=== PATIENT | male | born 1950 | race Caucasian/White ===

== ENCOUNTER → 2022-04-06 08:38 | Outpatient (CLI) | payer MEDICARE, SELFPAY ==
[2022-04-06 12:45] LABS: COVID19 -Nasal RAPID Negative (Negative)
== END ==
PROVIDERS: Visit Provider Family Medicine Sleep Medicine
DX: Z20.822 Contact with and (suspected) exposure to COVID-19 (principal)
CPT/HCPCS: 87635

== ENCOUNTER → 2022-04-06 08:47 | Outpatient (CLI) | payer MEDICARE, SELFPAY ==
--- NOTE | 2022-04-07 19:45 | DI.NM.S_ITS ---
DATE OF SERVICE: 04/06/2022 PROCEDURE PERFORMED: Pharmacological perfusion study. INDICATION: Underlying atrial fibrillation, as well as diabetes mellitus and hypertension. RADIOPHARMACEUTICAL: 25.8 millicurie technetium-99m Myoview IV was injected at stress and 24.9 millicurie technetium-99m Myoview IV was injected at rest. CARDIAC STRESS: The patient underwent IV Lexiscan perfusion study under the supervision of an attending staff, as per standard protocol. The patient remained hemodynamically stable. Baseline blood pressure 132/80. Baseline rhythm AFib with controlled ventricular rate. There were some nonspecific ST changes. During stress, there were no inducible ischemic changes. Rare PVCs. No anginal symptoms. RAW DATA: There is increased subdiaphragmatic activity affecting the inferior border of the heart. GATED STUDY: Stress LV ejection fraction 64 percent without any obvious wall motion abnormalities. Resting end-diastolic volume 167 mL, suggestive of dilated LV. However, the patient's weight is 308 pounds. TID ratio 0.98, which is within normal limits. Lung/heart ratio 0.27, which is within normal limits. MYOCARDIAL PERFUSION STUDY: Please note that there are no stress prone images. Stress supine and resting supine images were compared to each other. There appears to be predominantly fixed, moderate size, moderate to severely decreased perfusion of inferior wall extending into the distal inferolateral wall, as well as inferoapex. There is a moderately decreased perfusion of basal inferolateral wall, as well. No obvious reversible ischemia. CONCLUSION: There is a predominantly fixed, moderate to large size, severely decreased perfusion of inferior wall, distal inferolateral wall, inferoapex, as well as basal inferolateral wall. No reversible ischemia. There are no prone images. Hence, cannot distinguish tissue attenuation artifact versus old myocardial infarction, however during the raw study, significant tissue attenuation artifact is seen near the inferior border. Hot spot seen near the inferior border affecting the inferior border of the heart. On gated study, no significant wall motion abnormalities involving inferior wall and inferolateral wall. Hence, likely we are dealing with tissue attenuation artifact, like diaphragmatic tissue attenuation artifact. The patient's weight is 308 pounds. However, cannot rule out the possibility of inferior wall, distal inferolateral, inferoapex and basal inferolateral infarction for sure. In absence of reversible ischemia, preserved left ventricular function, overall low-risk myocardial perfusion scan. Correlate clinically. Hipolito Marrero - LANDRY/guanakito/tanner doc#: [id number]/job#: [id number] dd: 04/07/2022 16:32:00 dt: 04/07/2022 19:31:00 DICTATING MD/COPIES TO: Nicola Barakat MD COPIES MNE: LUIS ALBERTO;
== END ==
PROVIDERS: PCP Internal Medicine; Referring Provider Internal Medicine; Visit Provider Internal Medicine
DX: I48.91 Unspecified atrial fibrillation (principal); E11.9 Type 2 diabetes mellitus without complications; I10 Essential (primary) hypertension; Z20.822 Contact with and (suspected) exposure to COVID-19
CPT/HCPCS: 78452; 87635; 93017; C9803; A9502; J2785

== ENCOUNTER → 2022-04-14 08:22 | Outpatient (CLI) | payer MEDICARE, SELFPAY ==
--- NOTE | 2022-04-14 08:25 | DI.ECHO.S_ITS ---
[facility]---------+ [facility] +---------+ : : [address] : : : : [id number] : : : : Phone: [phone]---------+ Echocardiogram Report + + :Name: KATHERINE VIEYRA Study Date: 04/14/2022 Height: 75 in : :[facility] ReadingLocation: Weight: 350 lb : : Gender: Male BSA: 2.8 m2 : :: 1950 Age: 71 yrs BP: 150/80 mmHg: :Reason For Study: ATRIAL FIBRILLATION : :Ordering Physician: ARBEN, : :DAX Performed By: Rochelle Kelley : :Referring: DAX THEODORE : + + Interpretation Summary The left ventricle is borderline dilated. Left ventricular systolic function appears normal without focal wall motion abnormalities. The ejection fraction is estimated to be 55-60%. The right ventricle is normal in size and function. The right ventricular systolic pressure is estimated to be at least 27 mmHg based on an estimated right atrial pressure of 3 mm Hg. Right atrial size is normal. The left atrium is moderately dilated. There is mild to moderate mitral regurgitation. There is no other significant valvular heart disease. The ascending aorta is mildly enlarged. Procedure: A two-dimensional transthoracic echocardiogram with color flow and Doppler was performed. The study quality was technically adequate. There is no prior echocardiogram noted for this patient. The patient was in atrial fibrillation with heart rates between 71-90 bpm during the exam. Left Ventricle: The left ventricle is borderline dilated. There is mild concentric left ventricular hypertrophy. Left ventricular systolic function appears normal without focal wall motion abnormalities. The ejection fraction is estimated to be 55-60%. Diastolic function could not be accurately assessed due to atrial fibrillation. Right Ventricle: The right ventricle is normal in size and function. Atria: The left atrium is moderately dilated. Right atrial size is normal. There is no Doppler evidence for an interatrial shunt. Mitral Valve: There is mild mitral annular calcification. The mitral valve leaflets appear borderline thickened, but open well. There is mild to moderate mitral regurgitation. Aortic Valve: The aortic valve is trileaflet. The aortic valve opens well. There is no aortic valve stenosis. No aortic regurgitation is present. Tricuspid Valve: The tricuspid valve is normal in structure and function. There is mild tricuspid regurgitation. The right ventricular systolic pressure is estimated to be at least 27 mmHg based on an estimated right atrial pressure of 3 mm Hg. Pulmonic Valve: The pulmonic valve leaflets are thin and pliable; valve motion is normal. There is no pulmonic valvular regurgitation. There is no other significant valvular heart disease. Great Vessels: The aortic root is normal size. The ascending aorta is mildly enlarged. The IVC is of normal diameter and collapses greater than 50% with a sniff. This suggests a low right atrial pressure of 3 mm Hg. Pericardium/ Pleura There is no pericardial effusion. There is no pleural effusion. MMode/2D Measurements & Calculations LVIDd: 6.2 cm LVOT diam: 2.1 cm LVIDs: 4.3 cm Ao root diam: 3.8 cm FS: 30.4 % asc Aorta Diam: 4.0 cm IVSd: 1.4 cm Ao Arch Diam (Prox Trans): 3.9 cm LVPWd: 1.4 cm LV rodriguez. diameter/BSA (cm/m^2): 2.2 LV sys. diameter/BSA (cm/m^2): 1.5 LA A2 area: 36.4 cm2 RA long axis: 6.4 cm LA A4 area: 29.6 cm2 RA area: 25.6 cm2 LA length (vol): 6.8 cm RA vol: 86.3 ml LA vol: 134.8 ml RA : 31.0 ml/m2 LA vol index: 48.4 ml/m2 IVC diam: 1.8 cm RVD1 (basal): 3.7 cm RVD2 (mid): 2.9 cm TAPSE: 2.3 cm Doppler Measurements & Calculations Ao V2 max: 176.1 cm/sec LVOT Max Huan: 85.4 cm/sec Ao V2 mean: 128.7 cm/sec LV V1 max P.9 mmHg Ao max P.4 mmHg LV V1 VTI: 17.2 cm Ao mean P.4 mmHg LUCA(I,D): 1.6 cm2 Ao V2 VTI: 39.2 cm LUCA(V,D): 1.7 cm2 sev ratio: 0.44 LUCA indexed to BSA (cm^2/m^2): 0.57 MV E max huan: 105.5 cm/sec TR max huan: 243.4 cm/sec MV A max huan: 0.96 cm/sec TR max P.7 mmHg MV E/A: 110.3 PA V2 max: 90.5 cm/sec Med Peak E' Huan: 9.5 cm/sec PA V2 mean: 59.5 cm/sec E/E' med: 11.1 PA mean P.6 mmHg Lat Peak E' Huan: 9.2 cm/sec PA pr(Accel): 31.0 mmHg E/E' lat: 11.5 E/e' average: 11.3 MV dec time: 0.25 sec SV(LVOT): 61.7 ml Reading Physician:03:04 PM
== END ==
PROVIDERS: PCP Internal Medicine; Referring Provider Internal Medicine; Visit Provider Internal Medicine
DX: I48.91 Unspecified atrial fibrillation (principal); I51.7 Cardiomegaly; I34.0 Nonrheumatic mitral (valve) insufficiency
CPT/HCPCS: 93306

== ENCOUNTER → 2022-04-26 09:51 | Outpatient (CLI) | payer MEDICARE, SELFPAY ==
--- NOTE | 2022-04-26 10:11 | DI.CT.S_ITS ---
PROCEDURE: CT ABDOMEN PELVIS WO/W CON INDICATIONS: Hematuria TECHNIQUE: After the administration of oral contrast, 5 mm thick sections acquired from the diaphragms to the iliac crests. After the administration of intravenous contrast, 5 mm thick sections acquired from the diaphragms to the symphysis. 5 mm thick coronal and sagittal reformats were acquired. For radiation dose reduction, the following was used: automated exposure control, adjustment of mA and/or kV according to patient size. COMPARISON: None. FINDINGS: Image quality: Excellent. ABDOMEN: Lung bases: Lung bases are clear. Heart size is normal. Solid organs: Liver is normal in size and enhancement. Gallbladder unremarkable . Biliary system is non-dilated. Pancreas enhances normally. Spleen is normal in size and enhancement. No adrenal nodules. Both kidneys are normal in size. No hydronephrosis or nephrolithiasis. And Bilateral simple appearing renal cysts measure up to 5.5 cm on the right. In the bladder, there is a non dependent 2.4 cm hypodense nodule adherent to the anterior superior bladder wall. Mild prosthetic hypertrophy noted. No local adenopathy Bowel and peritoneum: Stomach, small and large bowel loops are normal in caliber and wall thickness. No free fluid or air. Nodes and vessels: No retroperitoneal or mesenteric adenopathy by size criteria. Aorta and inferior vena are normal in caliber. Atherosclerotic calcification in the abdominal aorta noted without evidence of aneurysm. Miscellaneous: No ventral hernias. PELVIS: Genitourinary: Bladder wall thickness is normal. Miscellaneous: No inguinal hernias or adenopathy. Bones: No suspicious bony lesions. No vertebral body compression fractures. 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 Differential would be hematoma. Direct visualization recommended. Approved by: Santi Gonzales M.D. on 04/26/2022 at 13:35
== END ==
PROVIDERS: PCP Internal Medicine
DX: R31.9 Hematuria, unspecified (principal); N32.9 Bladder disorder, unspecified; N28.1 Cyst of kidney, acquired
CPT/HCPCS: 74178